=== PATIENT | male | born 1960 | race African-American/Black ===

== ENCOUNTER 2018-12-14 11:41 | Emergency (ER) | payer SELFPAY ==
[~2018-12-14] VITALS: Ht 177.8 cm; Wt 113.6 kg
[2018-12-14] MEDS ORDERED: METF-960 PO (11:57)
[2018-12-14] MEDS ORDERED: LISI-660 PO (11:57)
[2018-12-14 12:04] LABS: GLUCOSE,POINT OF CARE 148 MG/DL (70-110)
[2018-12-14] MEDS ORDERED: IBUPROFEN 800 MG TABLET PO ONE (14:15)
[2018-12-14] MEDS ORDERED: METHOCARBAMOL 500 MG TABLET PO ONE (14:15)
[2018-12-14 15:45] VITALS: BP 132/74
== END 2018-12-14 15:56 | disposition home or self-care (01) ==
LOC: EMS 11:42
DX: S50.02XA Contusion of left elbow, initial encounter (principal); M25.512 Pain in left shoulder; I10 Essential (primary) hypertension; E11.9 Type 2 diabetes mellitus without complications; Z79.84 Long term (current) use of oral hypoglycemic drugs; V49.40XA Driver injured in collision with unspecified motor vehicles in traffic accident, initial encounter; Y93.89 Activity, other specified; Y92.411 Interstate highway as the place of occurrence of the external cause; Y99.8 Other external cause status
CPT/HCPCS: 29105; 72125